=== PATIENT | male | born 1970 | race American Indian/Alaskan Native ===

== ENCOUNTER 2020-03-14 11:00 | Day surgery (SDC) | payer OTHER ==
[2020-03-14] MEDS ORDERED: Ropivacaine 0.5% 5 MG/ML 30 ML SDV INJECT ONE (13:00)
[2020-03-14] MEDS ORDERED: Betamethasone Acetate/Betamethasone Sod Phosphate 30 MG/5 ML MDV EPIDUR ONE (13:00)
[2020-03-14] MEDS ORDERED: Iopamidol 200-M 10 ML vial ITHECAL ONE (13:00)
[2020-03-14] MEDS ORDERED: Lidocaine 2% 5 ML SDV INJECT ONE (13:00)
--- NOTE | 2020-03-14 16:22 | OR ---
SURGEON: Geena Bolden D.O. DATE OF PROCEDURE: 03/14/2020 ASSISTANTS: OR staff present: 1. Godfrey RN. 2. Teto Andres RN. 3. Gus RT. WOUND CLASS: I. PREOPERATIVE DIAGNOSES: 1. Lumbar degenerative disk disease; L3-4, L4-5, L5-S1. 2. Right neural foraminal L3 stenosis. 3. Left L5-S1 radiculopathy. 4. Right L3 radiculopathy. POSTOPERATIVE DIAGNOSES: 1. Lumbar degenerative disk disease; L3-4, L4-5, L5-S1. 2. Right neural foraminal L3 stenosis. 3. Left L5-S1 radiculopathy. 4. Right L3 radiculopathy. PROCEDURES PERFORMED: 1. Right L3 transforaminal epidural steroid injection. 2. Left S1 transforaminal epidural steroid injection. 3. Fluoroscopic guidance for needle placement. 4. Local with oral Valium for sedation. SCREENING QUESTIONS: The patient answered "no" to all of the following questions: 1. Are you allergic to iodine, Betadine or latex? 2. Do you have a bleeding disorder? 3. Do you have any joint replacements, heart valve replacements, or a pacemaker? 4. Are you allergic to anti-inflammatories or blood thinners? 5. Do you have any current local or systemic infections? DESCRIPTION OF PROCEDURE: The patient had the procedure thoroughly explained including risks, benefits and alternatives. Consent was signed in my clinic indicating understanding and willingness to proceed. The patient presented to [facility] [place] where the patient was escorted to the dressing room to disrobe and change into a hospital gown. Preoperative vital signs were taken and stable. The patient reported that Valium was taken prior to the procedure. The patient was brought to the procedure room and placed in the prone position on the table. A pillow was placed under the abdomen in order to flatten the lumbar lordosis. The back was prepped with ChloraPrep and sterilely draped. All personnel in the operating room were dressed in appropriate attire including surgical scrubs, head and shoe covers. This was to ensure sterility while in the treatment room. During the time fluoroscopy was in use, all personnel in the operating room wore lead wong with thyroid collars. Sterile technique was used during the procedure. The fluoroscope was placed for the right L3 transforaminal epidural steroid injection. There was no sign of infection at the skin site for needle insertion. The skin was anesthetized with 2% lidocaine with a 27 gauge 1-1/2 inch needle. Then, a 22 gauge 3-1/2 inch spinal needle, advanced to the right L3 -4 foramen with 15 oblique view and the endplates were squared. Under direct fluoroscopic guidance needle was advanced carefully until the needle tip was near the cephalad portion of the foramen on the lateral view and near the 6 o'clock position of the pedicle and AP view. Using live fluoroscopy ,0.2 cubic centimeters increments of Isovue-200 contrast dye showed no intravascular flow pattern, no heme or CSF was aspirated. Then 6 milligrams of Celestone and local was slowly injected after negative aspiration of heme, cerebrospinal fluid and no paresthesias were noted. The needle was cleared prior to removal from the skin. The procedure was then repeated for the Left S1 transforaminal epidural steroid injection as above. No adverse reactions were noted. The patient was brought to the recovery room awake and in good condition by my staff. The patient was monitored and discharge instructions were given after a brief stay in the recovery area. Both oral and written discharge and follow up instructions were given. The patient will follow up in the clinic in 3-4 weeks post procedure to evaluate the efficacy. The patient verbalized understanding including understanding of those signs and symptoms that would require emergency care and knows how to contact the office if there are any problems or questions in the meantime. PREOPERATIVE PAIN: 5/10. POSTOPERATIVE PAIN: 1/10. FOLLOWUP: In the Pain Clinic in 3 weeks. PAULA / BLANE /[id number] RODGER
== END 2020-03-14 13:46 ==
LOC: MW.SDS 11:00
PROVIDERS: ATTEND Anesthesiology
DX: G89.4 Chronic pain syndrome (principal); M51.16 Intervertebral disc disorders with radiculopathy, lumbar region; M51.17 Intervertebral disc disorders with radiculopathy, lumbosacral region; M48.061 Spinal stenosis, lumbar region without neurogenic claudication; M96.1 Postlaminectomy syndrome, not elsewhere classified; M79.2 Neuralgia and neuritis, unspecified; L29.9 Pruritus, unspecified; Z88.5 Allergy status to narcotic agent; Z79.899 Other long term (current) drug therapy; Z87.891 Personal history of nicotine dependence
CPT/HCPCS: 64483; 64484; J0702; J2001; J2795; Q9966

== ENCOUNTER 2020-07-06 10:35 | Day surgery (SDC) | payer OTHER ==
[2020-07-06] MEDS ORDERED: Lidocaine 2% 5 ML SDV INJECT ONE (12:30)
[2020-07-06] MEDS ORDERED: Betamethasone Acetate/Betamethasone Sod Phosphate 30 MG/5 ML MDV EPIDUR ONE (12:30)
[2020-07-06] MEDS ORDERED: Iopamidol 200-M 10 ML vial ITHECAL ONE (12:30)
[2020-07-06] MEDS ORDERED: Ropivacaine 0.5% 5 MG/ML 30 ML SDV INJECT ONE (12:30)
--- NOTE | 2020-07-06 20:26 | OR ---
SURGEON: Geena Bolden D.O. DATE OF PROCEDURE: 07/06/2020 PRIMARY SURGEON: Geena Bolden D.O. ASSISTANTS: OR staff present: 1. Luis Alicea RT. 2. Magdi Peña RN. WOUND CLASS: I. PREOPERATIVE DIAGNOSES: 1. L5-S1 degenerative disk disease. 2. L3-4 degenerative disk disease. 3. Right L3 radiculopathy. 4. Bilateral L5 radiculopathy. 5. Chronic low back pain. 6. Lumbar spondylosis. POSTOPERATIVE DIAGNOSES: 1. L5-S1 degenerative disk disease. 2. L3-4 degenerative disk disease. 3. Right L3 radiculopathy. 4. Bilateral L5 radiculopathy. 5. Chronic low back pain. 6. Lumbar spondylosis. PROCEDURES PERFORMED: 1. Right L3 transforaminal epidural steroid injection under fluoroscopy. 2. Right L5 transforaminal epidural steroid injection under fluoroscopy. 3. Valium for sedation. SCREENING QUESTIONS: The patient answered "no" to all of the following questions: 1. Are you allergic to iodine, Betadine or latex? 2. Do you have a bleeding disorder? 3. Do you have any joint replacements, heart valve replacements, or a pacemaker? 4. Are you allergic to anti-inflammatories or blood thinners? 5. Do you have any current local or systemic infections? DESCRIPTION OF PROCEDURE: The patient had the procedure thoroughly explained including risks, benefits and alternatives. Consent was signed in my clinic indicating understanding and willingness to proceed. The patient presented to [facility] [place] where the patient was escorted to the dressing room to disrobe and change into a hospital gown. Preoperative vital signs were taken and stable. The patient reported that Valium was taken prior to the procedure. The patient was brought to the procedure room and placed in the prone position on the table. A pillow was placed under the abdomen in order to flatten the lumbar lordosis. The back was prepped with ChloraPrep and sterilely draped. All personnel in the operating room were dressed in appropriate attire including surgical scrubs, head and shoe covers. This was to ensure sterility while in the treatment room. During the time fluoroscopy was in use, all personnel in the operating room wore lead wong with thyroid collars. Sterile technique was used during the procedure. The fluoroscope was placed for the right L3 transforaminal epidural steroid injection. There was no sign of infection at the skin site for needle insertion. The skin was anesthetized with 2% lidocaine with a 27 gauge 1-1/2 inch needle. Then a 22 gauge 3-1/2 inch spinal needle, advanced to the L3 foramen. Under direct fluoroscopic guidance the needle position was verified in three views; AP, oblique and lateral, and with 0.2 cubic centimeters increments of Isovue- 200 dye. No intravascular flow pattern was observed under live fluoroscopy. Then 6 milligrams of Celestone and local was slowly injected after negative aspiration of heme, cerebrospinal fluid and no paresthesias were noted. The needle was cleared prior to removal from the skin. The procedure was repeated as above for the right L5 transforaminal epidural injection. No adverse reactions were noted. The patient was brought to the recovery room awake and in good condition by my staff. The patient was monitored and discharge instructions were given after a brief stay in the recovery area. Both oral and written discharge and follow up instructions were given. The patient will follow up in the clinic in 3-4 weeks post procedure to evaluate the efficacy. The patient verbalized understanding including understanding of those signs and symptoms that would require emergency care and knows how to contact the office if there are any problems or questions in the meantime. PREOPERATIVE PAIN: 6/10. POSTOPERATIVE PAIN: /10. FOLLOWUP: In the Pain Clinic in 3 weeks. Incidentally, the patient fell on Friday and states he sprained his right ankle. Has swollen right ankle with bruising prior to exam today. The patient recommended to have x-ray of right ankle prior to followup to rule out any fracture. He will get this done at home in [place]. PAULA / BLANE /[id number] RODGER
== END 2020-07-06 14:36 ==
LOC: MW.SDS 10:35
PROVIDERS: ATTEND Anesthesiology
DX: G89.29 Other chronic pain (principal); M51.17 Intervertebral disc disorders with radiculopathy, lumbosacral region; M51.16 Intervertebral disc disorders with radiculopathy, lumbar region; M47.26 Other spondylosis with radiculopathy, lumbar region; M79.18 Myalgia, other site; M48.07 Spinal stenosis, lumbosacral region; F17.210 Nicotine dependence, cigarettes, uncomplicated; R51.9 Headache, unspecified; Z20.822 Contact with and (suspected) exposure to COVID-19; Z01.812 Encounter for preprocedural laboratory examination; Z88.8 Allergy status to other drugs, medicaments and biological substances; Z79.899 Other long term (current) drug therapy
CPT/HCPCS: 64483; 64484; 87635; J0702; J2795; Q9966; U0002